=== PATIENT | female | born 1975 | race Caucasian/White ===

== ENCOUNTER 2017-02-13 20:12 | Inpatient (IN) | payer BC ==
[2017-02-13 21:02] LABS: Hematocrit 33.1 % (37.0-47.0); Hemoglobin 10.9 gm/dL (12.5-16.0); Mean Cell Volume 92.2 fl (78-100); Mean Corpuscular Hemoglobin 30.4 pg (27-31); Mean Corpuscular Hgb Conc 32.9 g/dl (32-36); Mean Platelet Volume 11.8 fl (6.0-9.5); Neutrophil # 2.9 K/mm3 (1.3-6.0); Neutrophil % 58.9 % (42-75.0); Platelet Count 144 K/mm3 (150-450); Red Blood Count 3.59 M/mm3 (4.2-5.4); Red Cell Distribution Width 15.6 % (11.5-14.0); White Blood Count 4.8 K/mm3 (4.0-10.5)
[2017-02-13 21:13] LABS: Albumin * 2.2 gm/dl (3.4-5.0); Anion Gap 11.1 mmol/L (6.8-13.8); BUN/Creatinine Ratio 10.6 (9.0-21.6); Bilirubin, Total 0.3 mg/dL (0.0-1.1); Ca. Corrected For Albumin 9.6 mg/dL (8.4-10.2); Calcium * 8.5 mg/dL (7.9-10.9); Carbon Dioxide 28.8 mmol/L (24-32.6); Potassium 3.9 mmol/L (3.4-4.6); Total Protein 5.8 gm/dL (6.2-8.2)
[2017-02-13 21:21] LABS: Random Urine Total Protein Less than 6.0 mg/dL (0-12)
[2017-02-13 21:26] LABS: Urine Appearance Clear; Urine Bilirubin Negative (NEGATIVE); Urine Blood 25 /ul (NEGATIVE); Urine Color Yellow; Urine Ketone Negative (NEGATIVE); Urine Nitrite Negative (NEGATIVE); Urine Protein Negative (NEGATIVE); Urine Specific Gravity 1.005 SP.GR. (1.005-1.010); Urine Urobilinogen Normal (NORMAL); Urine pH 6.5 pH (5.0-7.0)
[2017-02-13 21:27] LABS: Urine Bacteria 1+; Urine RBC 0-5 /hpf (0-5); Urine WBC 0-5 /hpf (0-5)
[2017-02-13] MEDS ORDERED: LIDOCAINE HCL 50 ML VIAL PERI PRN (22:03)
[2017-02-13] MEDS ORDERED: OXYTOCIN/DEXTROSE 5%-WATER 30 UNITS/500 ML BAG IV ONE (22:03)
[2017-02-13] MEDS ORDERED: ONDANSETRON HCL/PF 2 MG/ML VIAL IV PRN (22:03)
[2017-02-13] MEDS ORDERED: RINGER'S SOLUTION,LACTATED 1,000 ML IV ONE (22:03)
[2017-02-13] MEDS ORDERED: diphenhydrAMINE HCL 50 MG/ML VIAL IV ONE (22:08)
[2017-02-13] MEDS ORDERED: METOCLOPRAMIDE HCL 5 MG/ML VIAL IV PRN (22:08)
[2017-02-14] MEDS: DEXTROSE 5%-LACTATED RINGERS 1,000 ML IV PRN ×4 (00:08→23:40)
--- NOTE | 2017-02-14 08:29 | PN ---
Progess Note - Interim Narrative: 02/14/17 08:22 Patient only feeling contractions mildly Vital signs stable. Blood pressures 130s-150s/70s-90's with an occasional SBP 160-170s. Pitocin at 12 mu/min. FHT: 120 baseline, reassuring Contractions q 2-4 min Cervix: 1/50/-2, medium consistency Impression: Intrauterine at 37-4/7 weeks, Induction of labor for gestational hypertension with occasional severe features Plan: Continue present plan. We'll start magnesium if blood pressures remain in the severe range. Consider Sigala bulb if no cervical change in the next few hours.
--- NOTE | 2017-02-14 13:18 | PN ---
Progess Note - Interim Narrative: 02/14/17 13:15 Patient becoming more uncomfortable with contractions Vital signs stable. Pitocin at if teen mu/min. FHT: 140 baseline, reassuring Contractions q 2-3 min Cervix: 50/-2, Sigala bulb inserted and filled to 60 mL Impression: Intrauterine at 37-4/7 weeks induction of labor for gestational hypertension with intermittent severe features Plan: Continue present plan
--- NOTE | 2017-02-14 18:00 | PN ---
Progess Note - Interim Narrative: 02/14/17 17:54 Patient breathing through contractions. She denies headache, visual changes, or epigastric pain. Blood pressures in severe range sitting up but in moderate range lying down or in semi-broussard position. Pitocin at 9 mu/min. FHT:150 baseline, reassuring Contractions q 2-3 min Cervix: 3/60/-3, Sigala bulb out Impression: Intrauterine at 37-4/7 weeks induction of labor for gestational hypertension with intermittent severe features Plan: If blood pressures remain elevated in severe range we will repeat preeclamptic labs and start on magnesium and antihypertensive medication.
[2017-02-15] MEDS ORDERED: RINGER'S SOLUTION,LACTATED 1,000 ML IV ONE (04:55)
[2017-02-15] MEDS ORDERED: ONDANSETRON HCL/PF 2 MG/ML VIAL IV PRN (05:12)
[2017-02-15] MEDS ORDERED: NALOXONE HCL 1 MG/1 ML SYRG IV PRN (05:12)
[2017-02-15] MEDS ORDERED: BUPIVACAINE HCL/0.9 % NACL/PF 250 ML EP PRN (05:12)
[2017-02-15] MEDS ORDERED: fentaNYL CITRATE/PF 50 MCG/ML AMPUL IT SCH (05:15)
--- NOTE | 2017-02-15 05:15 | PN ---
Progess Note - Interim Narrative: 02/15/17 05:08 Patient is uncomfortable due to lack of sleep, lack of eating, perineal discomfort from edema and irritation from diarrhea. She denies headache, visual changes, or epigastric pain. Vital signs stable. Over the past several hours her blood pressures have been within normal range. Pitocin at 12 mu/min. FHT: 130 baseline, reassuring Contractions q 2-3 min Cervix: 3-4/50/-2 at 3 AM, significant perineal edema Impression: Intrauterine at 37-5/7 weeks induction of labor for gestational hypertension Plan: Risk, benefits, and alternatives thoroughly discussed with and patient. After reviewing all options, patient has decided to proceed with an epidural and continue with induction of labor. After epidural placed will give patient and uterus a rest for couple hours.
[2017-02-15] MEDS ORDERED: COD LIVER OIL/ZINC OXIDE 113 APPL TUBE TP PRN (05:31)
--- NOTE | 2017-02-15 06:54 | OR ---
Anesthesia Procedure Note - Anesthesia Procedure Note Narrative: Vital Signs - Last Taken Temp 37 C 02/15/17 06:10 Pulse 57 L 02/15/17 06:10 Resp 18 02/15/17 06:10 BP 148/79 02/15/17 06:10 Pulse Ox 97 02/15/17 06:10 02/15/17 06:52 ANESTHESIA PROCEDURE NOTE Date of Procedure: 02/15/2017 Time of procedure: . Performed by: Rudy Vega CRNA [employer]: None. Preprocedure diagnosis: Active labor. Post procedure diagnosis: Same. Procedure: Insertion of labor epidural. Indications: The patient is a 41 -year-old multigravida female in active labor requesting labor epidural for pain management. Findings: See below. Details of the procedure: The patient was placed in a sitting position. Back was prepped with DuraPrep. Patient was then draped in a sterile fashion. Lidocaine 1% was infiltrated to the skin and subcutaneous tissues at the level of the L3 4 interspace. The epidural space was identified using a 18-gauge Tuohy needle with [id number] technique. 20 mcg fentanyl was given intrathecally using a 27 ga. spinal needle. Epidural catheter was inserted without difficulty. Negative test dose was elicited using 5 mL of 1.5% preservative-free lidocaine plus epinephrine 1 200,000. The epidural catheter was then taped and secured in place. EBL: Minimal. Fluids: N/A. Specimen: N/A. Post procedure condition: The patient tolerated the procedure well. No complications were noted. Thank you for this consultation. Jimenez CRNA
[2017-02-15] MEDS ORDERED: OXYTOCIN/DEXTROSE 5%-WATER 30 UNITS/500 ML BAG IV ONE (09:00)
[2017-02-15] MEDS ORDERED: ACETAMINOPHEN 500 MG TABLET PO ONE (12:22)
[2017-02-15] MEDS: DEXTROSE 5%-LACTATED RINGERS 1,000 ML IV PRN ×2 (14:10→22:03)
[2017-02-15] MEDS ORDERED: diphenhydrAMINE HCL 50 MG/ML VIAL IV ONE (21:00)
[2017-02-15] MEDS ORDERED: METOCLOPRAMIDE HCL 5 MG/ML VIAL IV PRN (21:02)
[2017-02-15] MEDS ORDERED: DEXTROSE 5%-LACTATED RINGERS 1,000 ML IV PRN (22:57)
--- NOTE | 2017-02-15 22:57 | PN ---
Progess Note - Interim Narrative: 02/15/17 22:42 Over the past several hours patient has made slow but progressive cervical change. She is currently 7 cm/75%/-2. Contractions are every 2-3 minutes on a maximum dose of Pitocin 30 mU/m - 150 [place] units. Blood pressures remain within normal limits when patient is asleep and on side, but become mildly elevated with agitation or movement. No clinical signs of infection to mother or baby. Impression: 37-5/7 week intrauterine , induction of labor for gestational hypertension with intermittent severe features, advanced maternal age, Leiden factor V-heterozygous Plan: We'll turn off Pitocin and rest uterus for 2 hours and increase D5 fluids to provide energy for resuscitation of uterus and mother. Free starting. The next couple hours does not reach adequate labor or lead to cervical change we' ll proceed with primary low transverse section. Plan has been discussed with patient and spouse who concur with this game plan.
[2017-02-16] MEDS ORDERED: RINGER'S SOLUTION,LACTATED 1,000 ML IV PRN (00:39)
[2017-02-16] MEDS ORDERED: OXYTOCIN 20 UNITS in RINGER'S SOLUTION,LACTATED 1,000 ML IV ONE ×2 (00:39→03:05)
--- NOTE | 2017-02-16 00:53 | PN ---
Progess Note - Interim Narrative: 02/16/17 00:43 Patient does not desire to restart Pitocin and try any longer for vaginal delivery. Vital signs stable. Pitocin off for the past 2 hours FHT: 135 baseline, reassuring Contractions q 2-4 min with all contractions rising less than 5-10 units above baseline Cervix: 7/75/-2 - no change in over the past 5 hours Impression: Intrauterine at 37 6/7 weeks induction for gestational hypertension with intermittent severe features. Arrest of dilation. Plan: Risks, benefits, alternatives to section discussed with patient and spouse. All questions answered. We'll proceed with primary low transverse section for arrest of dilation.
[2017-02-16] MEDS ORDERED: ceFAZolin SODIUM/DEXTROSE,ISO 2 GM/50 ML BAG IV SCH (01:00)
[2017-02-16 01:05] LABS: Hematocrit 32.3 % (37.0-47.0); Hemoglobin 10.8 gm/dL (12.5-16.0); Mean Cell Volume 90.7 fl (78-100); Mean Corpuscular Hemoglobin 30.3 pg (27-31); Mean Corpuscular Hgb Conc 33.4 g/dl (32-36); Mean Platelet Volume 13.3 fl (6.0-9.5); Neutrophil # 5.5 K/mm3 (1.3-6.0); Neutrophil % 69.7 % (42-75.0); Platelet Count 136 K/mm3 (150-450); Red Blood Count 3.56 M/mm3 (4.2-5.4); Red Cell Distribution Width 15.8 % (11.5-14.0); White Blood Count 7.9 K/mm3 (4.0-10.5)
[2017-02-16] MEDS ORDERED: RINGER'S SOLUTION,LACTATED 1,000 ML IV ONE ×2 (01:25→03:05)
--- NOTE | 2017-02-16 03:03 | OR ---
Operative Report - Dictated Report Narrative: Pre Operative Diagnosis: 37-6/7 week intrauterine , gestational hypertension, advanced maternal age, arrest of dilation Post Operative Diagnosis: Same. Procedure Preformed: Primary Low Transverse Section Surgeon: Elke Fleming DO Forest Manager: OR Staff Anesthesia: Spinal ,TAP block Estimated Blood Loss: 300 mL Urine Output: 200 mL Fluids Given: 1100 mL Drains: [place]aug[place] to gravity Surgical Complications: None Specimens: Placenta to freezer Findings: Male in cephalic presentation born at 1:57 AM on 02/16/2017 with Apgars 9 and 9, weighing 3586 g. Normal uterus, tubes, ovaries. 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 Technique: The patient was taken to the operating room and placed in dorsal supine position with a left lateral tilt. After adequate spinal anesthesia, maguire catheter insertion,SCDs placed, and 2 g of Ancef given preoperatively, the abdominal cavity was entered via a modified Mc-Saravia incision. Two rolled laps were placed in the pericolic gutters on either side of the uterus. A transverse incision was made in the lower uterine segment and extended laterally and upwardly with digital traction. Clear fluid was noted upon amniotomy. The infant was delivered easily. The cord was clamped and cut and was handed off to awaiting optometry doctor. The placenta was allowed to deliver spontaneously. The uterus was cleared of clot and debris. Uterine incision was closed with 0 Vicryl using a running stitch. A second imbricating layer was placed. Excellent hemostasis was noted. Rolled laps were removed from the abdominal cavitiy. The peritoneum was closed with a running 3-0 Monocryl. The same suture was used to approximate the rectus and pyramidalis muscles. The fascia was closed with a running 0 Vicryl. The subcutaneous layer was closed with a running 3-0 Monocryl. The same suture was used to approximate the subdermal layer. The skin was closed with a running 4-0 Monocryl and Dermabond. Sponge, lap, needle, and instrument count were correct x 2. Disposition: The patient was transferred to post anesthesia care unit in good condition History for MU Definition: * The number of deliveries resulting in a live the patient experienced prior to current hospitalization * The previous delivery of live twins or any live multiple gestation is considered one live event. *If primagravida or nulliparous is documented select zero for the number of previous live births. Live Events: 2
[2017-02-16] MEDS ORDERED: SENNOSIDES 8.6 MG TABLET PO PRN (03:05)
[2017-02-16] MEDS ORDERED: GLYCERIN/WITCH HAZEL LEAF 40 APPL BOX TP PRN (03:05)
[2017-02-16] MEDS ORDERED: BENZOCAINE/MENTHOL 81 SPRAY CAN TP PRN (03:05)
[2017-02-16] MEDS ORDERED: SIMETHICONE 80 MG TAB.CHEW PO PRN (03:05)
[2017-02-16] MEDS ORDERED: BISACODYL 10 MG SUPP.RECT RC PRN (03:05)
[2017-02-16] MEDS ORDERED: ONDANSETRON HCL/PF 2 MG/ML VIAL IV PRN (03:05)
[2017-02-16] MEDS ORDERED: oxyCODONE HCL/ACETAMINOPHEN 1 TAB TABLET PO PRN (03:05)
--- NOTE | 2017-02-16 03:27 | OR ---
Anesthesia Procedure Note - Anesthesia Procedure Note Date of Service: 02/16/17 Narrative: Vital Signs - Last Taken Temp 38.3 C H 02/16/17 03:20 Pulse 79 02/16/17 03:20 Resp 20 02/16/17 03:20 BP 133/69 02/16/17 03:20 Pulse Ox 94 02/16/17 03:20 O2 Oxygen Delivery Method Room Air 02/16/17 03:25 ANESTHESIA PROCEDURE NOTE Date of Procedure: 02/16/2017 Time of procedure: 3:00 AM. Performed by: SHAREE Dean CRNA, MSN Field Talent Qualification Specialist: Shalonda Smith RN. Preprocedure diagnosis: Post section pain. Post procedure diagnosis: Same. Procedure: Bilateral TAP block Indications: Post section pain relief. Findings: See below. Details of the procedure: The patient was brought to PACU and placed in the supine position. The patient was prepped with DuraPrep and using ultrasound guidance the 3 abdominal muscular planes were identified and lidocaine 1% was infiltrated to the skin of the intended injection site. Under ultrasound guidance the the internal oblique and transverse this abdominis muscle layers were approached until the tip of the block needle rested in the plane between the muscles. 25 mL bupivacaine 0.25% with 1-200,000 epinephrine was injected and the procedure was repeated on the other side. Please see radiology/ ultrasound report for details and images of the procedure. EBL: 0 Fluids: N/A. Specimen: N/A. Post procedure condition: The patient tolerated the procedure well. No complications were noted. Thank you for this consultation. Sam Mcgregor CRNA, SHAREE, MSN
[2017-02-16] MEDS: oxyCODONE HCL/ACETAMINOPHEN 1 TAB TABLET PO PRN ×5 (04:17→21:26)
[2017-02-16] MEDS: IBUPROFEN 800 MG TABLET PO PRN ×3 (04:17→18:25)
[2017-02-16] MEDS: ASCORBIC ACID 500 MG TABLET PO SCH (08:10)
[2017-02-16] MEDS: DOCUSATE SODIUM 100 MG CAPSULE PO SCH ×2 (08:10→21:12)
[2017-02-16] MEDS: PRENATAL VITS96/IRON FUM/FOLIC 1 TAB TABLET PO SCH (08:10)
[2017-02-16] MEDS: FERROUS SULFATE 325 MG TABLET PO SCH (08:10)
[2017-02-16] MEDS: MAGNESIUM OXIDE 400 MG TABLET PO SCH (10:18)
[2017-02-16] MEDS ORDERED: RHO(D) IMMUNE GLOBULIN 300 MCG DISP.SYRIN IM ONE (10:31)
[2017-02-16] MEDS: ENOXAPARIN SODIUM 40 MG/0.4 ML SYRG SC SCH (10:54)
[2017-02-17] MEDS: oxyCODONE HCL/ACETAMINOPHEN 1 TAB TABLET PO PRN ×4 (00:35→21:13)
[2017-02-17] MEDS: IBUPROFEN 800 MG TABLET PO PRN ×4 (00:35→23:19)
[2017-02-17] MEDS: MAGNESIUM OXIDE 400 MG TABLET PO SCH (09:26)
[2017-02-17] MEDS: ASCORBIC ACID 500 MG TABLET PO SCH (09:26)
[2017-02-17] MEDS: DOCUSATE SODIUM 100 MG CAPSULE PO SCH ×2 (09:26→21:13)
[2017-02-17] MEDS: FERROUS SULFATE 325 MG TABLET PO SCH (09:26)
[2017-02-17] MEDS: PRENATAL VITS96/IRON FUM/FOLIC 1 TAB TABLET PO SCH (09:26)
[2017-02-17] MEDS: ENOXAPARIN SODIUM 40 MG/0.4 ML SYRG SC SCH (11:33)
--- NOTE | 2017-02-17 17:37 | PN ---
Subjective - Date and Time Seen Date: 02/17/17 Time: 17:36 Objective - Vitals Vitals: Last Vital Signs Temp 36.8 C 02/17/17 11:30 Pulse 62 02/17/17 14:44 Resp 18 02/17/17 14:44 BP 161/88 02/17/17 14:44 Pulse Ox 97 02/17/17 14:44 Patient denies complaints. Tolerating regular diet. Ambulating without difficulty. Pain well controlled. Lochia wnl. Abdomen - soft, appropriately tender Incision - clean, dry, intact Uterus - firm, at umbilicus -1 No calf tenderness Impression: Post op day #1 s/p primary section. Gestational hypertension-resolving slowly Plan: Continue routine post-operative/ care Cauti Physician Documentation - Urinary Catheter Management Urethral (Sigala) Date of Insertion: 02/15/17 Time of Insertion: 07:30 Date of Removal: 02/16/17 Time of Removal: 15:00
[2017-02-18] MEDS: oxyCODONE HCL/ACETAMINOPHEN 1 TAB TABLET PO PRN ×4 (02:07→19:37)
[2017-02-18] MEDS: IBUPROFEN 800 MG TABLET PO PRN ×3 (05:22→19:15)
--- NOTE | 2017-02-18 07:21 | PN ---
Subjective - Date and Time Seen Date: 02/18/17 Time: 07:18 Objective - Vitals Vitals: Last Vital Signs Temp 36.8 C 02/18/17 07:04 Pulse 66 02/18/17 07:04 Resp 16 02/18/17 07:04 BP 131/81 02/18/17 07:04 Pulse Ox 98 02/18/17 07:04 Patient denies complaints. Ambulating well. Tolerating regular diet. Pain well controlled. Lochia wnl. Abdomen - soft, appropriately tender Incision - clean, dry, intact Uterus - firm, at umbilicus -2 No calf tenderness Impression: Post op day #2 s/p repeat section. Gestational hypertension-resolving. Leiden V factor heterozygous. Advanced maternal age. Plan: Continue routine post-operative/ care Cauti Physician Documentation - Urinary Catheter Management Urethral (Sigala) Date of Insertion: 02/15/17 Time of Insertion: 07:30 Date of Removal: 02/16/17 Time of Removal: 15:00
[2017-02-18] MEDS: ASCORBIC ACID 500 MG TABLET PO SCH (08:08)
[2017-02-18] MEDS: FERROUS SULFATE 325 MG TABLET PO SCH (08:08)
[2017-02-18] MEDS: DOCUSATE SODIUM 100 MG CAPSULE PO SCH ×2 (08:08→21:06)
[2017-02-18] MEDS: PRENATAL VITS96/IRON FUM/FOLIC 1 TAB TABLET PO SCH (08:08)
[2017-02-18] MEDS: MAGNESIUM OXIDE 400 MG TABLET PO SCH (08:08)
[2017-02-18] MEDS: ENOXAPARIN SODIUM 40 MG/0.4 ML SYRG SC SCH (11:08)
[2017-02-19] MEDS: IBUPROFEN 800 MG TABLET PO PRN ×3 (01:19→13:46)
--- NOTE | 2017-02-19 07:56 | PN ---
Subjective - Date and Time Seen Date: 02/19/17 Time: 07:53 Objective - Vitals Vitals: Last Vital Signs Temp 36.7 C 02/19/17 00:03 Pulse 56 L 02/19/17 00:03 Resp 16 02/19/17 00:03 BP 147/79 02/19/17 00:03 Pulse Ox 97 02/19/17 00:03 Patient denies complaints. Ambulating without difficulty. Tolerating regular diet. Pain well controlled. Lochia wnl. Abdomen - soft, appropriately tender Incision - clean, dry, intact Uterus - firm, at umbilicus -3 No calf tenderness Impression: Post op day #3 s/p primary section. Advanced maternal age. Gestational hypertension-resolving. Anemia-improving. Leiden factor V. Plan: Routine discharge instructions. Preeclampsia precautions. Continue iron supplementation. Continue anticoagulants until 4-6 weeks . Cauti Physician Documentation - Urinary Catheter Management Urethral (Sigala) Date of Insertion: 02/15/17 Time of Insertion: 07:30 Date of Removal: 02/16/17 Time of Removal: 15:00
[2017-02-19] MEDS: ASCORBIC ACID 500 MG TABLET PO SCH (10:14)
[2017-02-19] MEDS: DOCUSATE SODIUM 100 MG CAPSULE PO SCH (10:14)
[2017-02-19] MEDS: MAGNESIUM OXIDE 400 MG TABLET PO SCH (10:15)
[2017-02-19] MEDS: PRENATAL VITS96/IRON FUM/FOLIC 1 TAB TABLET PO SCH (10:15)
[2017-02-19] MEDS: FERROUS SULFATE 325 MG TABLET PO SCH (10:15)
[2017-02-19] MEDS: ENOXAPARIN SODIUM 40 MG/0.4 ML SYRG SC SCH (10:16)
[2017-02-19 12:00] VITALS: BP 127/79
[2017-02-19] MEDS: oxyCODONE HCL/ACETAMINOPHEN 1 TAB TABLET PO PRN (13:47)
== END 2017-02-19 13:50 | disposition home or self-care (01) | DRG 765 ==
LOC: OBCLINIC 20:12 → OB 21:55 → MS 02-17 15:49
PROVIDERS: ADMIT Obstetrics & Gynecology; ATTEND Obstetrics & Gynecology
PROC: 3E033VJ Introduction of Other Hormone into Peripheral Vein, Percutaneous Approach (ICD-10-PCS; 2017-02-16)
PROC: 4A1HXCZ Monitoring of Products of Conception, Cardiac Rate, External Approach (ICD-10-PCS; 2017-02-16)
PROC: 10D00Z1 Extraction of Products of Conception, Low, Open Approach (ICD-10-PCS; principal; 2017-02-16 01:10)
DX: O62.0 Primary inadequate contractions (principal); O99.12 Other diseases of the blood and blood-forming organs and certain disorders involving the immune mechanism complicating childbirth; D68.51 Activated protein C resistance; O13.4 Gestational [pregnancy-induced] hypertension without significant proteinuria, complicating childbirth; O99.02 Anemia complicating childbirth; D64.9 Anemia, unspecified; Z91.012 Allergy to eggs; Z3A.38 38 weeks gestation of pregnancy; Z37.0 Single live birth
CPT/HCPCS: 36415; 59025; 59510; 80053; 81001; 82570; 84156; 85025; 85460; 86850; 86900; J2790

== ENCOUNTER 2017-02-20 00:01 | Inpatient (IN) | payer BC ==
[2017-02-20] MEDS ORDERED: MAGNESIUM SULFATE IN WATER 50 ML IV ONE (00:30)
--- NOTE | 2017-02-20 00:46 | ERNOTE ---
Medical Problem HPI - Narrative Date of Service: 02/20/17 - General Chief Complaint: General Assessment Time Seen by Provider: 02/20/17 00:19 Source: patient, family, other - OB physician - Immun/Allergies/Home Medications Immunizations: IMMUNIZATION HX Immunizations Up to Date Yes Allergies/Adverse Reactions: Allergies egg Allergy (Verified 02/13/17 20:33) peanut Allergy (Verified 02/20/17 00:15) Home Medications: HOME MEDICATIONS Ascorbic Acid [Vitamin C] 500 mg PO DAILY 02/13/17 [Last Taken Unknown] Ferrous Sulfate [Iron] 325 mg PO DAILY 02/13/17 [Last Taken Unknown] Magnesium Oxide [Magnesium] 400 mg PO DAILY 02/13/17 [Last Taken Unknown] Enoxaparin Sodium [Lovenox] 40 mg SC Q24H #30 disp.syrin 02/18/17 [Last Taken Unknown] oxyCODONE HCL/ACETAMINOPHEN [Percocet 5 MG/325 MG] 1 tab PO Q4H PRN #20 tablet 02/18/17 [Last Taken Unknown] #103/Iron Fumarate/FA [ Tablet] 1 each PO DAILY [Last Taken Unknown] Docusate Sodium [Colace] 100 mg PO BID capsule 02/21/17 [Last Taken Unknown] Ibuprofen [Motrin] 800 mg PO Q6H PRN #0 tablet 02/21/17 [Last Taken Unknown] Labetalol HCl [Trandate] 100 mg PO BID #28 tablet 02/21/17 [Last Taken Unknown] oxyCODONE HCL/ACETAMINOPHEN [Percocet 5 MG/325 MG] 1 tab PO Q3H PRN #0 tablet [Last Taken Unknown] - History of Present History Narrative: Patient is a 41-year-old female status post delivery with complication of preeclampsia. Patient returns today stating that she had increased elevated blood pressures at home running systolic 160/101 70s over 9090s. Patient to his severe headache severe swelling of lower extremity she denies any vision changes. Denies any tonic-clonic activity up. Patient is an established patient of Dr. SINGH Plan is for her to be initially evaluated here labs drawn and transferred for admission to the OB floor I have contacted Dr. Irby and blood pressures initially 153/86 pulse of 60 temp of 90 afebrile pulse oximetry 98% her repeat blood pressure was 169/106 on her right arm. She was stable for transfer to OB. Timing: getting worse Severity: moderate Modifying Factors - (Improves): Present: rest Modifying Factors - (Worsens): Present: other - unknown Review of Systems - Review of Systems Constitutional: Present: fatigue, other - status post delivery for failure to progress EYE: Present: no symptoms reported ENT: Present: no symptoms reported Respiratory: Present: no symptoms reported Cardiology: Present: no symptoms reported Gastrointestinal/Abdominal: Present: no symptoms reported Genitourinary: Present: no symptoms reported Musculoskeletal: Present: no symptoms reported Skin: Present: no symptoms reported Neurological: Present: headache Endocrine: Present: no symptoms reported, unexplained weight gain, other - progressive lower extremity swelling All Other Systems: All systems neg except as marked - Narrative Narrative: Past history was reviewed as below. - Patient's Past Medical History Patient History - Medical: No pertinent hx Patient History - Cardiac/Respiratory: No pertinent hx Patient History - Cancer: No Hx of Cancer Patient History - Surgical Procedures: Patient History - Other: None LMP (females 10-50): - Family History Family History:: no family history of clotting disorders - Family History Mother Family History - Medical: Arthritis, Hypothyroidism Family History - Cardiac/Respiratory: Hypertension Family History - Cancer: No pertinent family hx - Social History Living Situations: spouse Abuse History: No History of abuse Psych History: No pertinent hx Smoking Status: Never smoker Have you smoked in the past 12 months: No Do you dip or chew tobacco: No Alcohol Use: rarely Drug Use: none - Immunizations Immunizations Up to Date: Yes Physical Exam - Physical Exam General Appearance: Present: wd/wn, alert, no apparent distress Head Exam: Present: normal inspection, no evidence of injury Eye Exam: Normal inspection: bilateral, PERRL: bilateral Ears, Nose, Throat: Present: normal ENT inspection, normal pharynx Neck: Present: normal inspection, nontender Respiratory: Present: no respiratory distress, normal breath sounds Cardiovascular/Chest: Present: regular rate, rhythm, no murmur Gastrointestinal/Abdominal: Present: no organomegaly Rectal Exam: Present: deferred Back Exam: Present: normal inspection Extremity Exam: Present: pedal edema - 4+ Neurological Exam: Present: alert, oriented, normal mood/affect, no motor/ sensory deficits Skin Exam: Present: normal color, warm/dry Pelvic Exam: Present: deferred ED Progress - Results and Orders Patient's Lab Results:: I have reviewed the patient's lab results. Results and Orders: Laboratory Tests 02/20/17 02/20/17 02/20/17 00:45 00:45 00:45 WBC 5.1 RBC 3.49 L Hgb 10.5 L Hct 32.1 L MCV 92.0 MCH 30.1 MCHC 32.7 RDW 16.0 H Plt Count 201 MPV 10.8 H Immature Gran % (Auto) 1.60 H Immature Gran # (Auto) 0.08 H Neutrophils % 62.1 Lymphocytes % 24.4 Monocytes % 8.5 Eosinophils % 2.8 Basophils % 0.6 Nucleated RBC % 0.0 PT 9.1 L INR (Anticoag Therapy) 0.87 L PTT ([place]) 25.5 Sodium 139 Potassium 4.1 Chloride 102 Carbon Dioxide 30.9 Anion Gap 10.2 BUN 8 Creatinine 0.86 Est GFR (Non-Af Amer) 77 BUN/Creatinine Ratio 9.3 Random Glucose 88 Calcium 8.8 Calcium Adj for Albumin 9.9 Total Bilirubin 0.3 AST 42 ALT 38 Alkaline Phosphatase 100 Total Protein 5.8 L Albumin 2.2 L Urine Color Urine Appearance Urine pH Ur Specific [place] Urine Protein Urine Glucose (UA) Urine Ketones Urine Blood Urine Nitrate Urine Bilirubin Urine Urobilinogen Ur Leukocyte Esterase Urine RBC Urine WBC Ur Epithelial Cells Urine Bacteria Urine Culture Comments Ur Random Creatinine U Random Total Protein U [place] Prot/Creat Ratio 02/20/17 02/20/17 01:20 01:20 WBC RBC Hgb Hct MCV MCH MCHC RDW Plt Count MPV Immature Gran % (Auto) Immature Gran # (Auto) Neutrophils % Lymphocytes % Monocytes % Eosinophils % Basophils % Nucleated RBC % PT INR (Anticoag Therapy) PTT ([place]) Sodium Potassium Chloride Carbon Dioxide Anion Gap BUN Creatinine Est GFR (Non-Af Amer) BUN/Creatinine Ratio Random Glucose Calcium Calcium Adj for Albumin Total Bilirubin AST ALT Alkaline Phosphatase Total Protein Albumin Urine Color Pale yellow Urine Appearance Clear Urine pH 6.0 Ur Specific [place] <=1.005 Urine Protein Negative Urine Glucose (UA) Negative Urine Ketones Negative Urine Blood 250 H Urine Nitrate Negative Urine Bilirubin Negative Urine Urobilinogen Normal Ur Leukocyte Esterase Negative Urine RBC 0-5 Urine WBC 0-5 Ur Epithelial Cells 0-5 Urine Bacteria None seen Urine Culture Comments No culture indicated Ur Random Creatinine 10.9 L U Random Total Protein Less than 6.0 U [place] Prot/Creat Ratio 550 H - Vital Signs Patient's Vital Signs:: I have reviewed the patient's vital signs. Vital Signs: Vital Signs 02/20/17 00:07 Temperature 37.1 C Pulse Rate 58 L Respiratory 14 Rate Blood Pressure 153/86 O2 Sat by Pulse 97 Oximetry - Progress/Reassessment Chief Complaint: General Assessment Progress:: Unchanged - Transfer of Care Expected Disposition: Admit Additional Notes: Patient will be transferred to the service of Dr. Whalen was immediately associated getting initiating labs and initial examination. Plan - Plan Plan: Discussed plan with Dr. Weathers patient is to be admitted to OB for preeclampsia workup and treatment magnesium 6 g IV loading dose to be given followed by 2 g per hour IV and patient is admitted to room 204 from ER. Departure - Departure Clinical Impression: hypertension Pre-eclampsia Qualifiers: Trimester: unspecified trimester Qualified Code(s): O14.90 - Unspecified pre- eclampsia, unspecified trimester Disposition: Still a patient Condition: Good
[2017-02-20 00:48] LABS: Hematocrit 32.1 % (37.0-47.0); Hemoglobin 10.5 gm/dL (12.5-16.0); Mean Corpuscular Hemoglobin 30.1 pg (27-31); Mean Corpuscular Hgb Conc 32.7 g/dl (32-36); Mean Platelet Volume 10.8 fl (6.0-9.5); Neutrophil # 3.1 K/mm3 (1.3-6.0); Neutrophil % 62.1 % (42-75.0); Platelet Count 201 K/mm3 (150-450); Red Blood Count 3.49 M/mm3 (4.2-5.4); White Blood Count 5.1 K/mm3 (4.0-10.5)
[2017-02-20 01:04] LABS: Prothrombin Time (Patient) 9.1 Seconds (9.4-11.4)
[2017-02-20 01:10] LABS: Albumin * 2.2 gm/dl (3.4-5.0); Anion Gap 10.2 mmol/L (6.8-13.8); BUN/Creatinine Ratio 9.3 (9.0-21.6); Bilirubin, Total 0.3 mg/dL (0.0-1.1); Ca. Corrected For Albumin 9.9 mg/dL (8.4-10.2); Calcium * 8.8 mg/dL (7.9-10.9); Carbon Dioxide 30.9 mmol/L (24-32.6); Potassium 4.1 mmol/L (3.4-4.6); Total Protein 5.8 gm/dL (6.2-8.2)
[2017-02-20 01:13] LABS: INR 0.87 INR (0.90-1.10); Partial Thrombolplastin Time 25.5 Seconds (24-32)
[2017-02-20] MEDS ORDERED: MAGNESIUM SULFATE IN WATER 50 ML, MAGNESIUM SULFATE IN WATER 50 ML IV ONE ×2 (01:30)
[2017-02-20] MEDS ORDERED: MAGNESIUM SULFATE IN WATER 1,000 ML IV PRN (01:42)
[2017-02-20 01:46] LABS: Urine Bilirubin Negative (NEGATIVE); Urine Blood 250 /ul (NEGATIVE); Urine Ketone Negative (NEGATIVE); Urine Nitrite Negative (NEGATIVE); Urine Protein Negative (NEGATIVE); Urine Specific Gravity <=1.005 SP.GR. (1.005-1.010); Urine Urobilinogen Normal (NORMAL)
[2017-02-20 01:54] LABS: Urine Appearance Clear; Urine Bacteria None Seen; Urine Color Pale Yellow; Urine RBC 0-5 /hpf (0-5); Urine WBC 0-5 /hpf (0-5)
[2017-02-20 02:04] LABS: Random Urine Total Protein Less than 6.0 mg/dL (0-12)
[2017-02-20] MEDS: LABETALOL HCL 100 MG TABLET PO SCH ×2 (09:46→20:54)
--- NOTE | 2017-02-20 10:31 | PN ---
Subjective - Date and Time Seen Date: 02/20/17 Subjective Narrative: Patient admitted for severe preeclampsia. was started on magnesium sulphate 6 g load and 2 g/h. diuresing well has put out 4.5 liter of urine since magnesium started. magnesium level 6.4. patient complains of difficulty breath and swallowing. so magnesium was turned off. exam: breathing not labored. breath sound normal bilateral. 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 knee reflux not inducible. plan: will recheck magnesium level calcium gluconate at bedside. patient declined to place a Sigala. will watch for magnesium toxicity. Andie Weathers MD Objective - Vitals Vitals: Last Vital Signs Temp 36.7 C 02/20/17 03:45 Pulse 76 02/20/17 09:46 Resp 16 02/20/17 05:59 BP 157/80 02/20/17 05:59 Pulse Ox 97 02/20/17 05:59 - Abnormal Lab Findings Abnormal Lab Findings: Abnormal Lab Results 02/20/17 02/20/17 02/20/17 Range/Units 00:45 00:45 00:45 RBC 3.49 L (4.2-5.4) M/mm3 Hgb 10.5 L (12.5-16.0) gm/dL Hct 32.1 L (37.0-47.0) % RDW 16.0 H (11.5-14.0) % MPV 10.8 H (6.0-9.5) fl Immature Gran % (Auto) 1.60 H (0.001-0.429) % Immature Gran # (Auto) 0.08 H (0.000-0.0310) K/mm3 Lymphocytes # 1.2 L (1.5-3.5) k/mm3 PT 9.1 L (9.4-11.4) Seconds INR (Anticoag Therapy) 0.87 L (0.90-1.10) INR Magnesium (1.2-2.8) mg/dL Total Protein 5.8 L (6.2-8.2) gm/dL Albumin 2.2 L (3.4-5.0) gm/dl Urine Blood (NEGATIVE) /ul Ur Random Creatinine (60-200) mg/dL U [place] Prot/Creat Ratio (0-199) mg/gm 0702/20/17 02/20/17 Range/Units 01:20 01:20 09:27 RBC (4.2-5.4) M/mm3 Hgb (12.5-16.0) gm/dL Hct (37.0-47.0) % RDW (11.5-14.0) % MPV (6.0-9.5) fl Immature Gran % (Auto) (0.001-0.429) % Immature Gran # (Auto) (0.000-0.0310) K/mm3 Lymphocytes # (1.5-3.5) k/mm3 PT (9.4-11.4) Seconds INR (Anticoag Therapy) (0.90-1.10) INR Magnesium 6.4 H (1.2-2.8) mg/dL Total Protein (6.2-8.2) gm/dL Albumin (3.4-5.0) gm/dl Urine Blood 250 H (NEGATIVE) /ul Ur Random Creatinine 10.9 L (60-200) mg/dL U [place] Prot/Creat Ratio 550 H (0-199) mg/gm
[2017-02-20] MEDS: oxyCODONE HCL/ACETAMINOPHEN 1 TAB TABLET PO PRN ×3 (14:00→20:55)
[2017-02-20] MEDS: DOCUSATE SODIUM 100 MG CAPSULE PO SCH (23:03)
[2017-02-21] MEDS: oxyCODONE HCL/ACETAMINOPHEN 1 TAB TABLET PO PRN (01:52)
[2017-02-21] MEDS: IBUPROFEN 800 MG TABLET PO PRN ×2 (01:52→08:12)
[2017-02-21 08:04] VITALS: BP 153/88
[2017-02-21] MEDS: LABETALOL HCL 100 MG TABLET PO SCH (08:12)
[2017-02-21] MEDS: DOCUSATE SODIUM 100 MG CAPSULE PO SCH (08:13)
--- NOTE | 2017-02-21 08:37 | PN ---
Subjective - Date and Time Seen Date: 02/21/17 Subjective Narrative: Hospital day 1 patient admitted for severe preeclampsia and was started on magnesium for 24 hour. she has been diuresing well. Has put out 10,550 ml of urine and lost 12 lbs over the course of one day after admission. her blood pressure is labile and mostly in the mild range. she is on labetalol 100 mg bid. she has a mild headache, but feels overall so much better. . normal lochia. Objective - Vitals Vitals: Last Vital Signs Temp 36.7 C 02/21/17 07:15 Pulse 64 02/21/17 08:12 Resp 16 02/21/17 07:15 BP 153/88 02/21/17 08:12 Pulse Ox 98 02/21/17 07:15 - Abnormal Lab Findings Abnormal Lab Findings: Abnormal Lab Results 02/20/17 02/20/17 02/20/17 Range/Units 09:27 10:40 17:25 Magnesium 6.4 H 5.8 H 5.2 H (1.2-2.8) mg/dL - Exam Constitutional: Present: Alert, Oriented x3, Cooperative Respiratory: Present: lungs clear, normal breath sounds, no respiratory distress Cardiovascular/Chest: Present: normal peripheral pulses Abdomen: Present: soft, nontender, nondistended, other - incision healed well. Extremity: Present: normal range of motion, no calf tenderness, lower extremity edema - 1+ edema bilaterally Skin Exam: Present: normal color, warm/dry, no cyanosis Eye contact: Present: cooperative, good eye contact, normal speech Assessment/Plan Plan Narrative: A: 41 yo, , with 1) severe preeclampsia, s/p magnesium sulphate x 24 horus, diuresing well; 2) mild elevation of blood pressure on labetalol; 3 ) POD #5 from primary c/s. Currently stable and well. Plan: will discharge home on labetalol 100 mg bid. follow up in a week. return precautions given. Andie Weathers MD
--- NOTE | 2017-02-21 13:13 | DS ---
(1) Status post Problem: Acute (2) hypertension Problem: Acute (3) Pre-eclampsia Problem: Acute Qualifiers: Trimester: unspecified trimester Qualified Code(s): O14.90 - Unspecified pre-eclampsia, unspecified trimester Description of Stay: Patient admitted for severe preeclampsia in period. received magnesium sulphate x 24 hours for seizure prophylaxis. Diuresed well. Blood pressure is labile and now in the mild range on labetalol. Patient felt so much better after monitoring and treatment. Procedures Performed: none Discharge Disposition: Home self care Disposition: Home self-care Condition: Good Discharge Activity: Activity as tolerated, No Lifting - more than the baby Discharge Diet: General/regular food Problem Oriented Discharge Instructions to Patient/Family: Preeclampsia and Eclampsia Additional Patient Instructions (free text): Kinjal lu follow up appointment is scheduled for February 24 at 1:[address] Weathers. Atul follow up appointment was rescheduled for tomorrow TuesdayFebruary 22 at 11:[address] Donnelly. Please arrive at 11:00 for paperwork. If you have any questions or concerns please don't hesitate to call us at . Prescriptions (Any new or edited meds): Labetalol HCl [Trandate] 100 mg PO BID #28 tablet Complete Home Medications List: Complete Home Medication List: Ascorbic Acid [Vitamin C] 500 mg PO DAILY 02/13/17 Ferrous Sulfate [Iron] 325 mg PO DAILY 02/13/17 Magnesium Oxide [Magnesium] 400 mg PO DAILY 02/13/17 Enoxaparin Sodium [Lovenox] 40 mg SC Q24H #30 disp.syrin 02/18/17 oxyCODONE HCL/ACETAMINOPHEN [Percocet 5 MG/325 MG] 1 tab PO Q4H PRN #20 tablet 02/18/17 #103/Iron Fumarate/FA [ Tablet] 1 each PO DAILY Docusate Sodium [Colace] 100 mg PO BID capsule 02/21/17 Ibuprofen [Motrin] 800 mg PO Q6H PRN #0 tablet 02/21/17 Labetalol HCl [Trandate] 100 mg PO BID #28 tablet 02/21/17 oxyCODONE HCL/ACETAMINOPHEN [Percocet 5 MG/325 MG] 1 tab PO Q3H PRN #0 tablet
== END 2017-02-21 11:20 | disposition home or self-care (01) | DRG 776 ==
LOC: ER 00:01 → OBCLINIC 00:01 → EDSTATUS 00:40 → OB 00:55
PROVIDERS: ADMIT Obstetrics & Gynecology; ATTEND Obstetrics & Gynecology
DX: O14.15 Severe pre-eclampsia, complicating the puerperium (principal); O13.5 Gestational [pregnancy-induced] hypertension without significant proteinuria, complicating the puerperium